=== PATIENT | female | born 1985 | race Caucasian/White ===

== ENCOUNTER 2017-03-09 09:28 | Inpatient (IN) ==
[2017-03-09] MEDS ORDERED: Naloxone 0.4 MG/ML INJ IVP PRN (10:17)
[2017-03-09] MEDS ORDERED: Famotidine 20 MG/2 ML VIAL IVP PRN (10:17)
[2017-03-09] MEDS ORDERED: miSOPROStol 100 MCG TABLET PO STA (10:34)
[2017-03-09 10:50] LABS: Basophils % 0.1 %; Eosinophils # 0.1 K/mcL (0.0-0.6); Eosinophils % 0.4 %; Hematocrit 36.4 % (35.3-44.9); Hemoglobin 12.4 g/dL (11.5-15.4); Immature Granulocytes % 0.6 % (0-4); Lymphocytes # 2.3 K/mcL (0.6-4.6); Lymphocytes % 18.1 %; Mean Corpuscular HGB Conc 34.1 g/dL (31.6-35.5); Mean Corpuscular Hemoglobin 29.7 pg (28.0-33.3); Mean Corpuscular Volume 87.3 fL (83.0-100.0); Mean Platelet Volume 10.9 fL (9.4-12.4); Monocytes # 0.6 K/mcL (0.0-1.3); Monocytes % 4.6 %; Neutrophils # 9.5 K/mcL (1.6-8.9); Platelet Count 224 K/mcL (140-400); Red Blood Count 4.17 M/mcL (3.82-4.97); Red Cell Distribution Width 14.4 % (11.5-14.5); Segmented Neutrophils % 76.2 %
--- NOTE | 2017-03-09 11:03 | OB Labor Progress Note ---
Date of Encounter: 03/09/17 Time of Encounter: 11:02 Labor Progress Note - Subjective Subjective: here for IOL. feels well. good movement, denies contractions, vaginal bleeding or leaking of fluid. - Cervix Cervix: 3/80/-2/vertex - Heart Tones Heart Tones: 135/moderate/+accels - [place]: q2-3 - Interventions Interventions: cytotoec given by RN - Plan Plan: IOL for GDM Cytotec Nubain/epidural as desired Anticipate
[2017-03-09] MEDS ORDERED: miSOPROStol 100 MCG TABLET PO SCH (12:00)
--- NOTE | 2017-03-09 12:35 | History & Physical Report ---
Date of Encounter: 03/09/17 Time of Encounter: 12:34 24 Hour HP Update - Instructions Instructions: If the History and Physical is less than 30 days old and was completed prior to A.M. admission and or procedure and has NOT been updated on calendar day of procedure please complete this update prior to performing procedure. - Update Patient reports changes in Medical Condition: No Changes in examination, assessment, or condition: Yes Changes in Medication: No Preop tests/diagnostics Reviewed: Yes Consent for Planned Operative Procedure(s) Verified: Yes Additions to current History and Physical: Cervix 3/80/-1, vertex - Pre-Operative Checklist Preoperative Checklist Indicated: No Prophylactic Antibiotic Ordered: No Home Medications Include Beta Beth: No Beta Beth Taken Today (Day of Surgery): No Beta Beth Taken Yesterday (Day Prior to Surgery): No Is VTE Prophylaxis Indicated?: NO (Induction of labor)
--- NOTE | 2017-03-09 16:21 | OB Labor Progress Note ---
Date of Encounter: 03/09/17 Time of Encounter: 16:00 Labor Progress Note - Subjective Subjective: Patient is comfortable with contractions. She feels like they are less strong than previous - Vital Signs Vital Signs: Afebrile, vital signs stable - Cervix Cervix: 4/80/0, vertex - Heart Tones Heart Tones: 130s, category 1 - Ham[place] Ham[place]: Contractions every 3-5 minutes after 1 dose Cytotec - Interventions Interventions: 39 week IUP, A2 GDM induction - Plan Plan: Amniotomy with clear fluid seen. IUPC placed with vaginal bleeding noted. Anticipate vaginal delivery
[2017-03-09] MEDS ORDERED: Ringers Solution, Lactated 1,000 ML ONE (18:02)
[2017-03-09] MEDS ORDERED: Oxytocin 20 units/ LR 1000 mL 20 UNIT/1,000 ML BAG IVC ONE (18:02)
[2017-03-09] MEDS ORDERED: Lidocaine 1% 20 ML MDV ONE (18:45)
[2017-03-09] MEDS ORDERED: Lidocaine/EPI 1:100k 1% 20 ML VIAL INFILT ONE (18:51)
--- NOTE | 2017-03-09 20:07 | OB/GYN Procedure Note ---
Delivery - Delivery Date: 03/09/17 Provider: Ketty Russo Intrapartum events: none Delivery induction: misoprostol Delivery augmentation: rupture of membranes Delivery monitor: external FHT, external uterine, internal uterine Anesthesia: local (1% lido w/ epi) Estimated Blood Loss: 300 - (s) Infant A Delivery Date: 03/09/17 Infant Delivery Time: 19:13 Presentation: vertex Position: KANDI Gender: Female Viability: Viable Pounds: 6 Ounces: 15 Weight Gram: 3.145 kg at 1 minute: 9 at 5 mins: 9 Shoulder Dystocia: not encountered Specimens collected: cord blood Placenta: spontaneous, uterine exploration (no retained POC) Cord: 3 umbilical vessels, other (Cord around body and arms), delivered through nuchal - Repair Episiotomy: none Laceration Description: Periurethral, Vaginal - Complications Delivery complications: none Delivery comments: The patient was complete and pushing unblocked with 1 contraction with a spontaneous vaginal delivery in KANDI position of a vigorous female weighing 6 lbs. 15 oz. with Apgars of 9 at 1 minute and 9 at 5 minutes. There was cord around the body and arm that was reduced. The patient was placed on the maternal abdomen. Cord was clamped and cut after pulsations ceased. Cord blood was obtained. Placenta was delivered spontaneous and intact. Uterus was explored and there were no retained products of conception. There was a superficial periurethral laceration which was hemostatic and not repaired. There was a second-degree vaginal laceration which was repaired with 3-0 Monocryl in a running locking and nonlocking fashion to reapproximate the laceration and control bleeding. No other lacerations noted. Both mother and recovering in stable condition in the LDR. Estimated blood loss 300 mL. Complications none - Disposition Mom disposition: stable in LDR [place] disposition: stable in LDR
[2017-03-09] MEDS ORDERED: Ibuprofen 600 MG TABLET PO PRN (21:43)
[2017-03-09] MEDS ORDERED: Oxytocin 20 units/ LR 1000 mL 20 UNIT/1,000 ML BAG IVC SCH (21:43)
[2017-03-09] MEDS ORDERED: Rho Immune Globulin 1,500 UNIT SYRINGE IM PRN (21:43)
[2017-03-09] MEDS ORDERED: Acetaminophen 325 MG TABLET PO PRN (21:43)
[2017-03-10 03:49] LABS: Basophils % 0.1 %; Eosinophils % 0.1 %; Hematocrit 28.3 % (35.3-44.9); Immature Granulocytes % 0.6 % (0-4); Lymphocytes # 2.9 K/mcL (0.6-4.6); Lymphocytes % 12.9 %; Mean Corpuscular HGB Conc 34.3 g/dL (31.6-35.5); Mean Corpuscular Hemoglobin 30.1 pg (28.0-33.3); Mean Corpuscular Volume 87.9 fL (83.0-100.0); Mean Platelet Volume 11.2 fL (9.4-12.4); Monocytes # 1.2 K/mcL (0.0-1.3); Monocytes % 5.4 %; Neutrophils # 18.3 K/mcL (1.6-8.9); Platelet Count 199 K/mcL (140-400); Red Blood Count 3.22 M/mcL (3.82-4.97); Red Cell Distribution Width 14.1 % (11.5-14.5); Segmented Neutrophils % 80.9 %
[2017-03-10 03:59] LABS: Hemoglobin 9.7 g/dL (11.5-15.4)
--- NOTE | 2017-03-10 08:09 | Discharge Summary ---
Date of Encounter: 03/10/17 Time of Encounter: 08:07 - Discharge Diagnosis (1) Vaginal delivery Priority: Primary Status: Acute Comments: Continue routine care discharge home today follow up with Dr. Russo in 4-6 weeks (2) anemia Priority: Secondary Status: Acute Comments: continue ferrous sulfate - Discharge Medications Prescriptions: Ibuprofen [Motrin] 600 mg PO Q6HR PRN #60 tablet PRN Reason: Mild To Moderate Pain Docusate [Colace] 100 mg PO BID #60 capsule Home Medications: Ferrous Sulfate [Iron] 1 tab PO BID 03/09/17 [History] Vit/Iron Fumarate/FA [ Tablet] 1 tab PO DAILY 03/09/17 [History ] metFORMIN [Glucophage] 1 tab PO BID 03/09/17 [History] Docusate [Colace] 100 mg PO BID #60 capsule 03/10/17 [Rx] Ferrous Sulfate 325 mg PO DAILY tablet 03/10/17 [Rx] Ibuprofen [Motrin] 600 mg PO Q6HR PRN #60 tablet 03/10/17 [Rx] Vit/FA 1 each PO DAILY #0 tablet 03/10/17 [Rx] Allergies/Adverse Reactions: Allergies No Known Allergies Allergy (Verified 03/09/17 10:12) Data Procedures and tests throughout hospitalization: Laboratory Tests 03/09/17 03/09/17 03/09/17 10:10 10:10 16:25 WBC 12.5 H RBC 4.17 Hgb 12.4 Hct 36.4 MCV 87.3 MCH 29.7 MCHC 34.1 RDW 14.4 Plt Count 224 MPV 10.9 Immature Gran % 0.6 Seg Neutrophils % 76.2 Lymphocytes % 18.1 Monocytes % 4.6 Eosinophils % 0.4 Basophils % 0.1 Neutrophils # 9.5 H Lymphocytes # 2.3 Monocytes # 0.6 Eosinophils # 0.1 Basophils # 0.0 Glucose 90 POC Glucose 75 Baby's Blood Type Mother's Blood Type Rhogam Indicated 03/09/17 03/10/17 20:00 02:57 WBC 22.6 H D RBC 3.22 L Hgb 9.7 L D Hct 28.3 L MCV 87.9 MCH 30.1 MCHC 34.3 RDW 14.1 Plt Count 199 MPV 11.2 Immature Gran % 0.6 Seg Neutrophils % 80.9 Lymphocytes % 12.9 Monocytes % 5.4 Eosinophils % 0.1 Basophils % 0.1 Neutrophils # 18.3 H Lymphocytes # 2.9 Monocytes # 1.2 Eosinophils # 0.0 Basophils # 0.0 Glucose POC Glucose Baby's Blood Type O RH POSITIVE Mother's Blood Type O RH NEGATIVE Rhogam Indicated YES Labs on day of discharge: Labs from last 24 hours 03/10/17 03/09/17 03/09/17 02:57 20:00 16:25 WBC 22.6 H D RBC 3.22 L Hgb 9.7 L D Hct 28.3 L MCV 87.9 MCH 30.1 MCHC 34.3 RDW 14.1 Plt Count 199 MPV 11.2 Immature Gran % 0.6 Seg Neutrophils % 80.9 Lymphocytes % 12.9 Monocytes % 5.4 Eosinophils % 0.1 Basophils % 0.1 Neutrophils # 18.3 H Lymphocytes # 2.9 Monocytes # 1.2 Eosinophils # 0.0 Basophils # 0.0 Glucose POC Glucose 75 Screen Pending Baby's Blood Type O RH POSITIVE Mother's Blood Type O RH NEGATIVE Rhogam Indicated YES Rhogam Req for Mother Pending 03/09/17 03/09/17 10:10 10:10 WBC 12.5 H RBC 4.17 Hgb 12.4 Hct 36.4 MCV 87.3 MCH 29.7 MCHC 34.1 RDW 14.4 Plt Count 224 MPV 10.9 Immature Gran % 0.6 Seg Neutrophils % 76.2 Lymphocytes % 18.1 Monocytes % 4.6 Eosinophils % 0.4 Basophils % 0.1 Neutrophils # 9.5 H Lymphocytes # 2.3 Monocytes # 0.6 Eosinophils # 0.1 Basophils # 0.0 Glucose 90 POC Glucose Screen Baby's Blood Type Mother's Blood Type Rhogam Indicated Rhogam Req for Mother Date of admission: 03/09/17 09:28 Primary care physician: PCP NO Consults: 03/09/17 21:43 Consult to [employer] [CONS] Routine Comment: Vaginal delivery, consult needed Discharging clinician: Devora Mcdermott Anticipated date of discharge: 03/10/17 - Patient Status Disposition: Home, Self-Care Condition: Good Functional capacity at discharge: independent ambulation - Discharge Instructions Follow Up With: NO,PCP [Primary Care Provider] - Ketty Russo MD [Partnered Physician] - - Diet and Activity Activity: increase activity as tolerated Diet: regular diet Hospital Course Reason for admission: induction of labor Delivery: Episiotomy: none Laceration: 2nd degree Other procedures: none complications: none Discharge diagnosis: IUP at term delivered baby: female (bottle feeding) Time Attestation: Total time spent providing and/or coordinating discharge services: Time Spent: Less than 30 minutes Exam - Constitutional Vitals: Temp Pulse Resp BP Pulse Ox 98.3 F 71 14 114/77 98 03/10/17 04:00 03/10/17 04:00 03/10/17 04:00 03/10/17 04:00 03/10/17 04:00 General appearance IM: A&O X 3, pleasant, answers questions appropriately - Respiratory Respiratory exam: Present: CTAB - Cardiovascular Cardiovascular exam IM: Present: RRR, +S1, +S2 - GI/Abdominal GI/Abdominal exam IM: normal bowel sounds - Uterine Tone: Firm Uterus Position: 2 Fingers Below Umbilicus, Midline - Extremities Exam Extremities exam IM: Present: full ROM, normal capillary refill, normal inspection - Neurological Exam Neurological exam: alert, oriented X3, reflexes normal
[2017-03-10] MEDS ORDERED: Prenatal Vit/FA 1 EACH TABLET PO SCH (09:00)
[2017-03-10 09:53] VITALS: BP 127/86
== END 2017-03-10 17:04 | disposition home or self-care (01) | DRG 775 ==
LOC: 1NENULAB 09:28 → 1NENUOBS 22:41
PROVIDERS: ADMIT Obstetrics & Gynecology; ATTEND Obstetrics & Gynecology